=== PATIENT | female | born 1970 | race Asian ===

== ENCOUNTER 2021-03-01 13:12 | Outpatient (CLI) | payer BC, SELFPAY ==
--- NOTE | 2021-03-01 13:30 | MM_ITS ---
WS: [id number] BILATERAL DIGITAL DIAGNOSTIC MAMMOGRAM MAMMOGRAPHY WITH CAD CLINICAL INFORMATION: History of Lt breast cancer COMPARISON: October 11, 2019 and July 30, 2018 TECHNIQUE: Bilateral CC, MLO, and ML views. FINDINGS: The breasts are composed of extremely dense tissue, which can limit the detection of small underlying mass lesions. Surgical clips upper outer left breast from prior lumpectomy. No suspicious focal mass, asymmetry, calcifications, or architectural distortion. No evidence of moe gnancy. MM/[id number] IMPRESSION: BI-RADS: 2-Benign FOLLOW UP: 1 Year Follow-up Recommend return to annual diagnostic mammography.
== END 2021-03-01 13:13 | disposition home or self-care (01) ==
PROVIDERS: PCP Family Medicine Adult Medicine; Visit Provider Family Medicine Adult Medicine
DX: Z85.3 Personal history of malignant neoplasm of breast (principal)
CPT/HCPCS: 77066

== ENCOUNTER 2021-09-16 13:03 | Emergency (ER) | payer BC, SELFPAY ==
[2021-09-16] VITALS (9 sets, daily range): BP systolic 111–139; BP diastolic 77–94; PULSE 76–86; RESP 15–20; TEMP 37.2; O2SAT 96–99; BMI 19.7
--- NOTE | 2021-09-16 14:18 | XR_ITS ---
WS: [id number] Left wrist, 2 views, 09/16/2021 Clinical Data: fall, pain Comparison: None. Findings: There is a comminuted, impacted and dorsally displaced fracture of the distal left radius. There is a fracture of the distal left ulna with an avulsion fracture of the ulnar styloid. There is soft tissue swelling about the wrist. The carpal bones are intact. XR/XR wrist LT 2V [id number] Impression: Fractures of the distal left radius and ulna.
--- NOTE | 2021-09-16 15:58 | ED_ITS ---
HPI - Extremity Problem General: Chief complaint: Extremity Injury, Upper Stated complaint: possible broken ribs Time Seen by Provider: 09/16/21 15:52 Source: patient Mode of arrival: ambulatory Limitations: no limitations History of Present Illness: 51-year-old female presents emergency room with complaint of left wrist pain. She was at home and slipped on some steps outside caught her self as she went to fall onto outstretched left arm. She did not strike her head not lose conscious no other injuries as an obvious deformity of the left wrist. There is notation in the nurses note she has rib pain, patient denies rib pain MD Complaint: extremity pain Onset (ago): minute(s) Pain Consistency: constant Location: left Quality: sharp and constant Radiation: none Relieving factors: nothing Exacerbating factors: nothing Associated symptoms: Deny arthralgias, chest pain, fever(s), myalgias, rash or short of breath Review of Systems Const: Denies: fever(s) or chills ENMT: Denies: throat pain, ear or mastoid pain, nasal discharge or nasal congestion Card: Denies: chest pain Resp: Denies: dyspnea, productive cough or non-productive cough GI: Denies: abdominal pain, nausea, vomiting, hematemesis, coffee ground emesis, diarrhea, constipation, bloating, hematochezia or melena : Denies: flank pain, difficulty voiding, dysuria, urinary frequency or urinary urgency Skin/Breast: Denies: rash [facility] ED PFSH: Medical History Right wrist fracture Social History Smoking and tobacco status: never smoked Physical Exam Const: GENERAL APPEARANCE: cooperative and comfortable ORIENTATION/CONSCIOUSNESS: Yes awake, Yes oriented to person, Yes oriented to place and Yes oriented to time HENMT: COMMON NORMALS: normocephalic, atraumatic and hearing grossly normal bilaterally HEAD & SCALP: normocephalic and atraumatic Neck/C-Spine: COMMON NORMALS: no JVD Resp: COMMON NORMALS: normal respiratory effort, No retractions, No use of accessory muscles and clear to auscultation bilaterally AUSCULTATION: clear to auscultation bilaterally Cardio: COMMON NORMALS: no JVD, regular rate, regular rhythm and No murmurs present (Cardio) RATE: regular rate RHYTHM: regular rhythm Extremity: COMMON NORMALS: normal to inspection, capillary refill normal, no clubbing, cyanosis or edema, no calf tenderness and no pedal edema OTHER: deformity to the left wrist Neuro: SENSORIUM/ORIENTATION: Yes oriented to person, Yes oriented to place and Yes oriented to time Skin: COMMON NORMALS: no rashes or lesions noted GENERAL SKIN EXAM: no rashes or lesions noted Procedures Orthopedic Splinting/Casting Injury #1: Side: left Upper Extremity Injury Location: wrist Upper Extremity Immobilizer: sling/shoulder immobilizer and sugar tong splint Additional Comments: Neurovascular intact pre and post splint placement Course Vital Signs: Vital signs: Vital Signs Temperature 98.9 F 09/16/21 13:08 Pulse Rate 84 09/16/21 18:51 Respiratory Rate 15 09/16/21 18:51 Blood Pressure 139/94 09/16/21 18:51 Pulse Oximetry 96 09/16/21 18:51 MDM - Extremity (Nontraumatic) Medical Decision Making Wrist fracture. Sugar-tong splint referral to orthopedics tomorrow will likely need ORIF. Discussed with Dr. Crowell she requested a CT of the wrist and will see the patient tomorrow. Medical Records I reviewed the patient's medical records. Lab Data I reviewed the patient's lab results. Radiology Impressions Wrist X-Ray 09/16/21 14:18 Impression: Fractures of the distal left radius and ulna. Hand CT 09/16/21 16:58 IMPRESSION: Comminuted fracture of the distal radius with mild volar angulation. Avulsion fracture of the ulnar styloid process with volar displacement. Discharge Plan Discharge Patient Disposition: Home Clinical Impression: Fracture of wrist Condition: Stable Prescriptions: New hydrocodone-acetaminophen 5-325 mg tablet 1 tab PO Q6H PRN (Reason: pain) Qty: 20 0RF No Action rizatriptan 10 mg Tablet 10 mg PO Q2H PRN (Reason: Migraine Headache) 0RF Rx Instructions: do not exceed 3 doses per 24 hrs Vitamin C 500 mg Tablet 500 mg PO DAILY 0RF CoQ-10 100 mg Capsule 100 mg PO DAILY 0RF Discharge Orders: Discharge ED (Routine); Ordered 09/16/21 Ordered By: Mau L Horstman Patient Instructions: Opioid Safety Activity Restrictions/Additional Instructions: manager of business will make arrangements for you to follow-up with the orthopedic clinic. Coding Level of Care Code ED Special Effects Designer for Waldo Fwd Exam Detailed
[2021-09-16] MEDS: ondansetron 2 mg/ML SDV 2 mL 4 MG IM (16:24)
[2021-09-16] MEDS: morphine 4 mg/mL SDV 1 mL IM ×3 (16:24→18:38)
--- NOTE | 2021-09-16 16:58 | CTR_ITS ---
PROCEDURE INFORMATION: Exam: CT Left Upper Extremity Without Contrast, Hand Exam date and time: 09/16/2021 5:28 PM Age: 51 years old Clinical indication: Injury or trauma; Fall; Fracture, traumatic injury; Closed fracture; Carpals; Left; Additional info: Wrist fx- TECHNIQUE: Imaging protocol: CT of the Left upper extremity without contrast was performed. Exam focused on the hand. Radiation optimization: All CT scans at this facility use at least one of these dose optimization techniques: automated exposure control; mA and/or kV adjustment per patient size (includes targeted exams where dose is matched to clinical indication); or iterative reconstruction. COMPARISON: CR XR wrist LT 2V [id number] 09/16/2021 2:22 PM RADIATION DOSE METRICS: Total DLP (mGy-cm): 218.29 FINDINGS: Bones/joints: Comminuted fracture of the distal radius with mild volar angulation. No evident intra-articular extension. Avulsion fracture of the ulnar styloid process with 7 mm volar displacement. Soft tissues: Soft tissue swelling around the wrist. CT/CT hand LT wo con* [id number] IMPRESSION: Comminuted fracture of the distal radius with mild volar angulation. Avulsion fracture of the ulnar styloid process with volar displacement.
--- NOTE | 2021-09-17 17:58 | DCPLANNER ---
Addendum entered by Wendie Mckoy 09/19/21 16:45: Patient had a follow up appointment scheduled for 09.18.[address] Hitchcock at ortho - patient did attend appointment. Original Note: express manager had message to schedule a follow up appointment for patient with ortho. express manager sent patients information to the front office staff at ortho. Patients information will be printed and reviewed. Clinic will call patient with appointment information.
== END 2021-09-16 18:50 | disposition home or self-care (01) ==
PROVIDERS: Emergency Provider Family Medicine
DX: S52.502A Unspecified fracture of the lower end of left radius, initial encounter for closed fracture (principal); S52.612A Displaced fracture of left ulna styloid process, initial encounter for closed fracture; W18.30XA Fall on same level, unspecified, initial encounter
CPT/HCPCS: 29125; 73100; 73200; 96372; 99283; J2270; J2405

== ENCOUNTER 2021-09-20 07:09 | Day surgery (SDC) | payer BC, SELFPAY ==
[2021-09-19 12:12] VITALS: BMI 19.1
[2021-09-20] VITALS (10 sets, daily range): BP systolic 106–161; BP diastolic 70–87; PULSE 65–84; RESP 15–70; TEMP 36.1–36.8; O2SAT 97–100
--- NOTE | 2021-09-20 | SCC_ITS ---
Procedure done: Open reduction internal fixation left distal radius fracture 140.8 seconds of fluoroscopic guidance, for a cumulative dose of 4.95 mGy, was provided to Dr. Hitchcock by the radiology department. C-arm images of the LEFT wrist were saved for the patient's permanent record. [facility]
--- NOTE | 2021-09-20 | XR_ITS ---
WS: [id number] C-ARM RADIOGRAPHS LEFT WRIST; 4 IMAGES HISTORY: OR PICS/ORIF LT DISTAL RADIUS FRACTURE COMPARISON: 09/16/2021 Intraoperative imaging during reduction and ORIF distal radial fracture which is now in good position and alignment. Volar plate and screws have been placed. Better alignment involving the distal ulnar fracture. XR/XR wrist LT 2V [id number] IMPRESSION: Intraoperative imaging during ORIF distal radial fracture which is now in good alignment.
[2021-09-20] MEDS: CELEcoxib 200 mg Capsule 400 MG PO (07:57)
[2021-09-20] MEDS: sodium chloride 0.9% 1,000 ML 30 ML IV (07:57)
[2021-09-20] MEDS: acetaminophen 1,000 MG/100 ML PIGGYBACK 400 MG IV (07:57)
--- NOTE | 2021-09-20 08:31 | ANES.PREANE2 ---
Pre-Anesthetic Assessment Height/Weight: Height 1.69 m Weight 54.431 kg Temp Pulse Resp BP Pulse Ox 98.2 F 70 16 121/75 99 09/20/21 07:34 09/20/21 07:34 09/20/21 07:34 09/20/21 07:34 09/20/21 07:34 Preop Diagnosis: Left distal radius fracture Operation Date: 09/20/21 08:25 Proposed Procedures p ORIF Wrist(Left) - Vaishali Hitchcock MD Familial anesthetic complications: none Was Beta Nabil taken within 24 hours: N/A Was Clonidine taken within 24 hours: N/A Last intake: Intake Last Liquid Date 09/19/21 Last Liquid Time 23:00 Last Solid Date 09/19/21 Last Solid Time 20:00 Social No alcohol and No tobacco Exam alert, oriented x 3, clear to auscultation bilaterally and regular rate & rhythm Airway Mallampati: Class I Dentition: full Pulmonary None reported CV/HEM None reported None reported Hepatic None reported GI None reported Metabolic None reported Musc/skel None reported Neuropsych None reported Anesthetic Plan ASA status: 1 Anesthesia: General and Regional (specify below) Risk of > 500 ml blood loss (7ml/kg in children): No Medications/Allergies Home Medications Medication Instructions Recorded Confirmed Last Taken Type ascorbic acid (vitamin C) 500 mg 500 mg PO DAILY 09/16/21 09/20/21 1 Day Ago History tablet (Vitamin C) ~09/19/21 coenzyme Q10 100 mg capsule 100 mg PO DAILY 09/16/21 09/20/21 1 Day Ago History (CoQ-10) ~09/19/21 hydrocodone 5 mg-acetaminophen 325 1 tab PO Q6H PRN #20 tab 09/16/21 09/20/21 09/16/21 Rx mg tablet rizatriptan 10 mg tablet 10 mg PO Q2H PRN 09/16/21 09/19/21 Unknown History Allergies Allergy/AdvReac Type Severity Reaction Status Date / Time isopropyl alcohol Allergy Mild ALGY-Rash Verified 09/20/21 07:39 alcohol Allergy ALGY-Redness Verified 09/20/21 07:39 of Skin Current Medications Generic Name Dose Route Start Last Admin Trade Name Freq PRN Reason Stop Dose Admin Sodium Chloride 1,000 mls @ 30 mls/hr 09/20/21 07:30 09/20/21 07:57 Sodium Chloride 0.9% IV 09/21/21 07:29 30 mls/hr .Q24H GIOVANNI Administration PFSH Anesthesia Medical History Costochondritis Endometriosis HX: breast cancer Migraine headache Right wrist fracture Surgical History History of appendectomy Family History Other Cancer Hypertension Social History Smoking and tobacco status: never smoked Alcohol intake: never Marital status: Number of children: 0 Current occupational status: unemployed Data Anesthesia Cardiac Studies: No Data to Display
--- NOTE | 2021-09-20 08:33 | ANES.PROC ---
Anesthesia Procedures Procedure/Date: 09/20/21 Nerve Block ^: Nerve Block 1: Main Anesthesia: general anesthesia Time Out Performed: Yes Consent: requested by attending/covering physician, from patient, risks and benefits reviewed and patient agrees to proceed Nerve block location: axillary (+ musculocutaneous (L)) Anesthesia monitors applied: pulse oximetry Nerve block position: supine Anesthetic Used: ropivicaine 0.5% (30) and with decadron (4 mg) Ultrasound used to: recognize landmarks and visualize and ID brachial plexus Nerve Stimulator Used?: No Interscalene/Femoral BLK: 2 stimuplex 22 g needle used for position and inplane approach, visualize local anesthetic spread and no vascular puncture identified Injection: neg aspiration of heme Patient Tolerated Procedure: well and no complications Complications: none
--- NOTE | 2021-09-20 08:37 | PC.NURSE ---
Nerve block done on left operative side by Dr Kaur (anesthesia). Pt. pulse between, 68 and 74, oxygen sats were 97% to 98% during procedure.
--- NOTE | 2021-09-20 08:53 | W.PM.OPSUD ---
Surgery/Procedure H&P Update DATE OF PROCEDURE: September 20, 2021 DATE H&P PERFORMED: 09/18/21 H&P UPDATE INFORMATION: I have reviewed H&P completed within last 30 days, I have examined patient prior to procedure, No changes to prior documentation and H&P is in [facility] [place] on date indicated PREOP DIAGNOSIS: Left distal radius fracture PLANNED PROCEDURE: Operation Date: 09/20/21 08:25 Proposed Procedures p ORIF Wrist(Left) - Vaishali Hitchcock MD Related Problem List Diagnoses (1) Fracture of distal end of left radius and ulna:
[2021-09-20] MEDS: ceFAZolin 1,000 mg SDV 1000 MG IRRIGATION (09:48)
--- NOTE | 2021-09-20 12:11 | P.OP_ITS ---
Operative Report Date of procedure: September 20, 2021 Pre-op diagnosis: Left distal radius fracture Post-op diagnosis: Left distal radius fracture Post-op findings: Angulated left distal radius fracture really I just Procedure done: Open reduction internal fixation left distal radius fracture Implants: Neon distal radius volar plate left, narrow, short Pathology: none sent Surgeon: Vaishali Hitchcock Head Custodian: [facility] operating room technicians Anesthesia: General (Utilizing LMA, ASA 1, axillary block) Estimated blood loss (mL): 5 Tourniquet time (min): 79 (At 250 mmHg) IV fluids (mL): 1,000 Urine output (mL): 0 (No Chand) Complications: None Findings: Angulated left distal radius fracture Condition: stable Brief History: This is a 51-year-old woman who was in her usual state of health when she tripped on a step at her home and fell causing her left hand to hit a log. Previously, the patient states she had a right distal radius fracture while she lived in [facility]. This involved an iron door. Today's injury is of the left distal radius. This fall caused significant angulation of the distal radius as well as displacement and an unstable pattern. The patient was seen in the office and scheduled for the above procedure after risks and complications were discussed. She wished to proceed. Consents were signed. Procedure: Patient was brought to the operating theater, and after undergoing adequate general anesthesia per LMA, ASA 1, the patient's left upper extremity was prepped and draped in usual fashion utilizing Betadine due to isopropyl alcohol allergy. Additionally, preoperatively, the patient had a left axillary block as a supplemental anesthetic. The patient had a tourniquet placed high on the arm prior to prepping and draping.? Following prepping and draping, the arm was exsanguinated and the tourniquet was elevated.? Total tourniquet time was 79 minutes at 250 mmHg.? Prior to commencement of the surgical procedure, a surgical pause was performed.? At the time of the surgical pause, we confirmed the site and side of surgery as well as the patient's identity and preoperative surgical markings.? We also confirmed availability of equipment and appropriate preoperative IV antibiotics which was Ancef 2 g.? Fluoroscopy was also brought into position so that we could visualize the fracture and hardware throughout the surgical procedure.? The fracture was evaluated prior to tourniquet placement. Following elevation of the tourniquet as well as the surgical pause, appropriate plate was chosen. The skin was marked for appropriate incision length and lo cation. An incision was made along the palmaris longus and continued down onto the volar surface of the radius.? Care was taken to avoid injury throughout the surgical procedure to the median nerve as well as to the radial artery.? The flexor carpi radialis was retracted medially.? We were able to essentially elevate the sheath of the flexor carpi radialis, and then I was able to place my finger directly onto the distal radius.? For the most part, the patient did her own dissection at the time of her injury.? Soft tissues were elevated off the distal radius to allow access to the fracture and also to the volar aspect of the distal radial shaft.? Reduction required manipulation with a [place] and [place] elevator secondary to the significant displacement.? Fluoroscopy was used to determine whether or not the reduction was appropriate.? We were able to reduce the fracture nearly anatomically.? We then evaluated the plate and chose the narrow short Neon volar distal radius plate.? The plate was attached proximally and distally without difficulty.? A combination of locking and nonlocking screws was utilized to attach the plate.? We had excellent fixation and reduction of the fracture. Fluoroscopy was utilized during the procedure.? Once the plate was fully attached, we had a near anatomic position to the distal radius and the distal radius was out to length.? Being satisfied with position, the area was copiously irrigated. There were no fascial tissues to close, and therefore, we closed the subcutaneous tissues with 3-0 interrupted Monocryl.? Skin was closed in a subcuticular fashion with 4-0 Monocryl.?Sterile dressing was then placed consisting of Dermabond, Steri-Strips, OpSite, fluffed fluffs, sterile soft roll, a volar splint, and an Karel wrap. The tourniquet was released after 79 minutes. There were no complications. There were no specimens. The procedure was well tolerated. Plan is the patient will be discharged home. Related Problem List Diagnoses (1) Fracture of distal end of left radius and ulna:
--- NOTE | 2021-09-20 15:58 | ANE.PACU2 ---
Inpatient post-anesthesia follow up: Airway intact: Yes Vital signs: Temperature 97.2 F Pulse Rate 65 Respiratory Rate 18 Blood Pressure 154/71 Pulse Oximetry 98 Oxygen Delivery Me thod Room Air Oxygen Flow Rate 6.0 Fraction of Inspir ed Oxygen Hydration adequate: Yes Nausea and vomiting: No Pain level: 1 Mental status: Baseline
== END 2021-09-20 12:25 | disposition home or self-care (01) ==
PROVIDERS: PCP Family Medicine Adult Medicine; Visit Provider Specialist
PROC: (CPT 25607; principal; 2021-09-20 08:15)
DX: S52.502A Unspecified fracture of the lower end of left radius, initial encounter for closed fracture (principal); W01.0XXA Fall on same level from slipping, tripping and stumbling without subsequent striking against object, initial encounter; Z85.3 Personal history of malignant neoplasm of breast
CPT/HCPCS: 25607; 64417; 73100; 76000; 76942; C1713; J0690; J1100; J1200; J2405; J2704; J2795; J3010; J3490; J7030

== ENCOUNTER → 2021-10-07 08:15 | Outpatient (BNVA) | payer BC, SELFPAY | PROVIDERS: PCP Family Medicine Adult Medicine; Visit Provider Nurse Practitioner Family | DX: S52.502A Unspecified fracture of the lower end of left radius, initial encounter for closed fracture (principal); S52.602A Unspecified fracture of lower end of left ulna, initial encounter for closed fracture; W19.XXXA Unspecified fall, initial encounter | CPT/HCPCS: 73110 ==

== ENCOUNTER 2021-10-07 14:15 | Outpatient (CLI) | payer BC, SELFPAY | END 2021-10-07 14:16 | disposition home or self-care (01) | LOC: SPT 14:16 | PROVIDERS: PCP Family Medicine Adult Medicine; Visit Provider Specialist | DX: Z46.89 Encounter for fitting and adjustment of other specified devices (principal); S52.592D Other fractures of lower end of left radius, subsequent encounter for closed fracture with routine healing; S52.692D Other fracture of lower end of left ulna, subsequent encounter for closed fracture with routine healing; X58.XXXD Exposure to other specified factors, subsequent encounter; Z98.890 Other specified postprocedural states | CPT/HCPCS: 97760; L3982 ==

== ENCOUNTER → 2021-11-11 10:40 | Outpatient (BNVA) | payer BC, SELFPAY | PROVIDERS: PCP Family Medicine Adult Medicine; Visit Provider Nurse Practitioner Family | DX: S52.502A Unspecified fracture of the lower end of left radius, initial encounter for closed fracture (principal); S52.602A Unspecified fracture of lower end of left ulna, initial encounter for closed fracture; X58.XXXA Exposure to other specified factors, initial encounter | CPT/HCPCS: 73110 ==

== ENCOUNTER 2021-11-27 14:57 | Outpatient (CLI) | payer BC, SELFPAY ==
[2021-11-27 15:30] LABS: Basophils % 0.9 %; Eosinophils # 0.1 10^3/uL (0.0-0.8); Eosinophils % 2.9 %; Hematocrit 41.4 % (37.0-47.0); Hemoglobin 14.4 g/dL (11.5-15.3); Lymphocytes # 1.5 10^3/uL (0.8-4.8); Lymphocytes % 44.8 %; Mean Corpuscular HGB Conc 34.8 g/dL (30.0-36.0); Mean Corpuscular Hemoglobin 31.5 pg (28.0-34.0); Mean Corpuscular Volume 90.6 fl (81-99); Mean Platelet Volume 9.6 fL (7.4-10.4); Monocytes # 0.3 10^3/uL (0.2-0.9); Monocytes % 9.9 %; Neutrophils # 1.43 10^3/uL (1.8-7.7); Neutrophils % 41.5 %; Nucleated Red Blood Cells % 0 %; Platelet Count 233 10^3/cmm (130-400); Red Blood Count 4.57 10^6/uL (4.1-5.3); White Blood Count 3.4 10^3/uL (4.0-10.0)
[2021-11-27 15:40] LABS: Alanine Aminotransferase 18 U/L (0-33); Albumin Level 4.5 g/dL (3.5-5.2); Alkaline Phosphatase 86 IU/L (35-105); Aspartate Amino Transferase 27 U/L (0-32); Blood Urea Nitrogen 14 mg/dL (6-20); Calcium 8.9 mg/dL (8.5-10.5); Carbon Dioxide 25 mmol/L (22-29); Chloride 100 mmol/L (98-107); Globulin 2.8 g/dL (1.3-4.6); Glomerular Filtration Rate 129.1 mL/min (90-130); Glucose 100 mg/dL (65-115); Osmolality Calculated 283 mOsm/kg (285-295); Sodium 136 mmol/L (136-145); Total Bilirubin 0.5 mg/dL (0.15-1.2); Total Protein 7.3 g/dL (6.6-8.7)
[2021-11-27 15:41] LABS: Anion Gap 15.1 (5-19); Potassium 4.1 mmol/L (3.5-5.1)
== END 2021-11-27 14:58 | disposition home or self-care (01) ==
PROVIDERS: PCP Family Medicine Adult Medicine; Visit Provider Family Medicine
DX: M25.9 Joint disorder, unspecified (principal); R19.7 Diarrhea, unspecified; R50.9 Fever, unspecified
CPT/HCPCS: 80053; 85025; 86140; 87040

== ENCOUNTER 2022-01-03 15:00 | Outpatient (CLI) | payer BC, SELFPAY ==
--- NOTE | 2022-01-03 15:08 | XR_ITS ---
WS: [id number] SCREENING DEXA SCAN [employer] CLINICAL INFORMATION: POST OP/FX OF DISTAL END OF RADIUS ULNA COMPARISON: None. FINDINGS: The L1-L4 bone mineral density measures 0.770 g/cm2. This corresponds to a T score score of -3.4 and Z score of -2.4. Left femoral neck bone mineral density measures 0.704 g/cm2. This corresponds to a T score of -2.4 an d Z score of -1.5. Right femoral neck bone mineral density measures 0.666 g/cm2. This corresponds to a T score -2.7of an d Z score of -1.9. Mean femoral neck bone mineral density measures 0.685 g/cm2. This corresponds to a T score of -2.6 an d Z score of -1.7. XR/XR DEXA axial skeleton* [id number] IMPRESSION: Osteoporosis Patient's FRAX calculated 10 year probability for major osteoporotic fracture i s 15.3 % and osteoporotic hip fracture is 4.3%.
== END 2022-01-03 15:01 | disposition home or self-care (01) ==
LOC: RAD 15:01
PROVIDERS: PCP Family Medicine Adult Medicine; Visit Provider Nurse Practitioner Family
DX: Z13.820 Encounter for screening for osteoporosis (principal); S52.502D Unspecified fracture of the lower end of left radius, subsequent encounter for closed fracture with routine healing; X58.XXXD Exposure to other specified factors, subsequent encounter; Z98.890 Other specified postprocedural states
CPT/HCPCS: 77080

== ENCOUNTER 2022-11-06 08:25 | Outpatient (CLI) | payer BC, SELFPAY ==
--- NOTE | 2022-11-06 08:38 | MM_ITS ---
WS: [id number] DIAGNOSTIC BILATERAL DIGITAL BREAST TOMOSYNTHESIS MAMMOGRAPHY WITH CAD HISTORY: History of breast cancer COMPARISON: 03/01/2021, 10/11/2019 and 07/30/2018 TECHNIQUE: Bilateral craniocaudad, mediolateral oblique, and mediolateral views are submitted with to mosynthesis and SM. Computer aided detection utilized. Breast composition: The breasts are extremely dense, which lowers the sensitivity of mammography. Pos tsurgical changes upper outer quadrant of the LEFT breast are stable. No new mass or calcification. MM/[place] [id number] IMPRESSION: BI-RADS: 2-Benign FOLLOW UP: 1 Year Follow-up
== END 2022-11-06 08:26 | disposition home or self-care (01) ==
PROVIDERS: PCP Family Medicine Adult Medicine; Visit Provider Family Medicine Adult Medicine
DX: Z85.3 Personal history of malignant neoplasm of breast (principal)
CPT/HCPCS: 77062; G0279

== ENCOUNTER → 2023-03-08 11:14 | Outpatient (BNVA) | payer BC, SELFPAY | PROVIDERS: PCP Family Medicine Adult Medicine; Visit Provider Family Medicine | DX: R07.81 Pleurodynia (principal) | CPT/HCPCS: 71046 ==

== ENCOUNTER 2023-03-10 14:20 | Outpatient (CLI) | payer BC, SELFPAY ==
--- NOTE | 2023-03-10 14:33 | XRR_ITS ---
PROCEDURE INFORMATION: Exam: XR Right Ribs with PA Chest Exam date and time: 03/10/2023 2:38 PM Age: 52 years old Clinical indication: Chest wall pain; Prior surgery; Surgery date: 6+ months; Surgery type: Left mastectomy; Patient HX: Patient bent over last (03/05/23) and now has right anterior rib pain. Patient states that they felt a pop; Additional info: RT rib pain, history of rib fractures in the past and injury while bending over on. HX of left breast cancer TECHNIQUE: Imaging protocol: Radiologic exam of the right ribs with PA chest. Views: 3 views COMPARISON: CR XR chest 2V insp/exp [id number] 03/08/2023 11:22 AM FINDINGS: Limitations: Inadequate technique for bone detail. Lungs: Unremarkable. No consolidation. Pleural spaces: Unremarkable. No pleural effusion. No pneumothorax. Heart/Mediastinum: Unremarkable. No cardiomegaly. Bones/joints: Mild apex rightward upper thoracic curvature. No definite right-sided rib fracture seen. XR/XR ribs RT mn 3V w CXR1V [id number] IMPRESSION: Inadequate technique for bone detail. No definite right-sided rib fracture seen.
== END 2023-03-10 14:21 | disposition home or self-care (01) ==
PROVIDERS: PCP Family Medicine Adult Medicine; Visit Provider Family Medicine Adult Medicine
DX: R07.81 Pleurodynia (principal)
CPT/HCPCS: 71101

== ENCOUNTER → 2024-09-05 14:13 | Outpatient (BNVA) | payer BC, SELFPAY | PROVIDERS: Family Provider Family Medicine; PCP Family Medicine; Visit Provider Family Medicine | DX: Z13.6 Encounter for screening for cardiovascular disorders (principal) | CPT/HCPCS: 80053; 80061; 84439; 84443; 85025 ==

== ENCOUNTER 2024-09-08 10:18 | Outpatient (CLI) | payer BC, SELFPAY ==
--- NOTE | 2024-09-08 10:30 | MM_ITS ---
WS: [id number] BILATERAL 3D TOMOSYNTHESIS DIGITAL DIAGNOSTIC MAMMOGRAPHY WITH CAD CLINICAL INFORMATION: hx of breast Cancer HISTORY: Breast cancer COMPARISON: 2022 TECHNIQUE: Bilateral CC, MLO, and ML views. FINDINGS: The breasts are composed of extremely dense tissue, which can limit the detection of small underlying mass lesions. Postoperative lumpectomy changes upper outer LEFT breast. Surgical clips near the LEFT axilla. No suspicious focal mass, asymmetry, calcifications, or architectural distortion. No evidence of malignancy. MM/MM diag tomosynthesis [id number] IMPRESSION: DENSITY: The breasts are heterogeneously dense, which may obscure small masses. BI-RADS: 2 - Benign FOLLOW UP: 1 Year Follow-up Recommend return to annual diagnostic mammography.
== END 2024-09-08 10:19 | disposition home or self-care (01) ==
PROVIDERS: Family Provider Family Medicine; PCP Family Medicine; Visit Provider Family Medicine
DX: N64.4 Mastodynia (principal); R92.343 Mammographic extreme density, bilateral breasts; Z98.890 Other specified postprocedural states
CPT/HCPCS: 77062; G0279